=== PATIENT | female | born 1990 ===

== ENCOUNTER 2023-08-29 08:32 | Inpatient (IN) | payer BC ==
[~2023-08-29 08:32] MED LIST: Albuterol 0.083% 2.5 MG/3 ML Neb Soln NEB PRN; Clindamycin Phosphate in D5W 600 MG in Premix Bag 1 BAG IV ONE; HYDROmorphone 1 MG/ML Syringe IVPUSH PRN; Metoclopramide 10 MG/2 ML SDV IVPUSH PRN; Morphine 2 MG/ML SYRINGE IVPUSH PRN; Naloxone 0.4 MG/ML SDV IVPUSH PRN; Ondansetron 4 MG/2 ML SDV IVPUSH PRN; diphenhydrAMINE 50 MG/ML SDV IVPUSH PRN; droPERidol 5 MG/2 ML SDV IVPUSH PRN; ePHEDrine 50 MG/ML SDV IVPUSH PRN; fentaNYL 100 MCG/2 ML SDV IVPUSH PRN; fentaNYL 50 MCG/ML SDV IVPUSH PRN
[2023-08-29] MEDS: Lactated Ringers 1,000 ML IV SCH ×2 (08:45→12:31)
[2023-08-29] MEDS ORDERED: Morphine PF 10 MG/10 ML SDV ONE (08:50)
[2023-08-29] MEDS ORDERED: fentaNYL 100 MCG/2 ML SDV ONE (08:50)
[2023-08-29] MEDS ORDERED: Oxytocin 10 Units/1 ML SDV ONE (08:53)
[2023-08-29] MEDS ORDERED: Dexamethasone 4 MG/ML 5 ML MDV ONE (08:53)
[2023-08-29] MEDS ORDERED: Ondansetron 4 MG/2 ML SDV ONE (08:53)
[2023-08-29] MEDS ORDERED: dexmedeTOMIDine HCl 200 MCG/2 ML SDV ONE (08:53)
[2023-08-29] MEDS ORDERED: Ketorolac 30 MG/ML SDV ONE (08:53)
[2023-08-29] MEDS ORDERED: ePHEDrine 50 MG/ML SDV ONE (08:53)
[2023-08-29] MEDS ORDERED: Phenylephrine 1% 10 MG/ML SDV ONE (08:53)
[2023-08-29] MEDS ORDERED: Tranexamic Acid 1,000 MG/10 ML Vial ONE (08:53)
[2023-08-29] MEDS ORDERED: Ropivacaine 0.5% 5 MG/ML 30 ML SDV ONE (08:53)
[2023-08-29] MEDS ORDERED: Sodium Chloride 0.9% 20 ML SDV IV PRN (08:57)
[2023-08-29] MEDS ORDERED: Clindamycin Phosphate in D5W 900 MG in Premix Bag 50 BAG IV ONE (08:57)
[2023-08-29] MEDS ORDERED: Sodium Chloride 0.9% 2.5 ML Syringe FLUSH PRN (08:57)
[2023-08-29] MEDS ORDERED: Sodium Chloride 0.9% 10 ML Syringe FLUSH PRN (08:57)
[2023-08-29] MEDS ORDERED: Oxytocin/0.9 % Sodium Chloride 30 UNIT/500 ML BAG IV SCH (09:00)
[2023-08-29] MEDS ORDERED: Calcium Chloride 10% 1 GM/10 ML Syringe ONE (09:02)
[2023-08-29 09:05] LABS: HEMATOCRIT 34.3 % (37.0-47.0); HEMOGLOBIN 11.8 g/dL (12.0-16.0); MEAN CORPUSCULAR HEMOGLOBIN 27.9 pg (28.0-32.0); MEAN CORPUSCULAR HGB CONC 34.4 g/dL (32.0-36.0); MEAN CORPUSCULAR VOLUME 81.1 fL (83.0-99.0); MEAN PLATELET VOLUME 10.9 fL (9.4-12.3); PLATELET COUNT,PLT 200 K/uL (150-400); RED BLOOD CELL COUNT 4.23 M/uL (4.10-5.30); WHITE BLOOD CELL COUNT,WBC 7.95 K/uL (3.9-11.3)
[2023-08-29] MEDS ORDERED: ceFAZolin 1 GM Vial ONE (10:05)
[2023-08-29] MEDS ORDERED: Lidocaine 2% 5 ML SDV ONE (11:12)
[2023-08-29] MEDS ORDERED: Oxytocin 10 Units/1 ML SDV IM PRN (11:31)
[2023-08-29] MEDS ORDERED: diphenhydrAMINE 50 MG/ML SDV IVPUSH PRN (11:31)
[2023-08-29] MEDS ORDERED: Acetaminophen/oxyCODONE 325-5 MG Tab PO PRN ×2 (11:31)
[2023-08-29] MEDS ORDERED: Methylergonovine 0.2 MG/1 ML Amp IM PRN (11:31)
[2023-08-29] MEDS ORDERED: Bisacodyl 10 MG Supp RECTAL PRN (11:31)
[2023-08-29] MEDS ORDERED: Lanolin 100% Cream 7 GM Tube TOP PRN (11:31)
[2023-08-29] MEDS ORDERED: Misoprostol 200 MCG Tab RECTAL PRN (11:31)
[2023-08-29 11:37] LABS: PH,UMBILICAL ARTERIAL 7.211 (7.18-7.38); PH,UMBILICAL VENOUS 7.261 (7.25-7.45)
[2023-08-29] MEDS: Clindamycin Phosphate in D5W 600 MG in Premix Bag 1 BAG IV ONE (12:05)
[2023-08-29] MEDS: Ketorolac 30 MG/ML SDV IVPUSH SCH (12:05)
[2023-08-29] MEDS: Clindamycin Phosphate in D5W 300 MG in Premix Bag 1 BAG IV ONE (12:05)
[2023-08-29] MEDS: Citric Acid/Sodium Citrate Solution 30 ML Cup PO ONE (12:05)
[2023-08-29] MEDS: Simethicone 80 MG Tab.Chew PO SCH (12:28)
[2023-08-29] MEDS: Acetaminophen 1,000 MG in Premix Bag 1 BAG IV SCH (12:28)
[2023-08-29] MEDS: Ondansetron 4 MG/2 ML SDV IVPUSH PRN (15:50)
[2023-08-29] MEDS: Docusate Sodium 100 MG Cap PO SCH (20:20)
[2023-08-30 06:00] LABS: HEMATOCRIT 29.1 % (37.0-47.0)
[2023-08-30] MEDS: Acetaminophen/oxyCODONE 325-5 MG Tab PO PRN (16:24)
[2023-08-31] MEDS: Ibuprofen 800 MG Tab PO PRN (08:07)
== END 2023-08-31 11:30 | disposition home or self-care (01) | DRG 540 ==
LOC: MW.OB 08:32
PROVIDERS: ADMIT Obstetrics & Gynecology; ATTEND Obstetrics & Gynecology
PROC: 10D00Z1 Extraction of Products of Conception, Low, Open Approach (ICD-10-PCS; principal; 2023-08-29 10:30)
DX: O34.211 Maternal care for low transverse scar from previous cesarean delivery (principal); Z3A.39 39 weeks gestation of pregnancy; Z37.0 Single live birth; Z88.0 Allergy status to penicillin; Z87.891 Personal history of nicotine dependence
CPT/HCPCS: 36415; 59025; 82803; 85014; 85018; 85027; 86592; 86850; 86900; 86901; A9270-GY; J0131; J0690; J0736; J1100; J1885; J2274; J2371; J2405; J2590; J2795; J3010; J3490; J7120

== ENCOUNTER 2024-01-18 16:31 | Emergency (ER) | payer BC ==
[2024-01-18] MEDS: Lidocaine 2% 11 ML Jelly Filled Syringe MUCMEM STA (19:09)
[2024-01-18] MEDS: Lidocaine 1% 5 ML VIAL INJECT ONE (19:26)
[2024-01-18] MEDS: Bacitracin Oint 1 GM U/D Packet TOP ONE (19:51)
== END 2024-01-18 20:02 | disposition home or self-care (01) ==
LOC: MW.ED 16:31
DX: S61.411A Laceration without foreign body of right hand, initial encounter (principal); Z88.0 Allergy status to penicillin; X58.XXXA Exposure to other specified factors, initial encounter
CPT/HCPCS: 12001; 73120; 99283; A9270; J3490